=== PATIENT | male | born 1955 | race Caucasian/White ===

== ENCOUNTER 2019-08-19 07:52 | Emergency (ER) | payer BC ==
--- NOTE | 2019-08-19 08:34 | EDM.PDOC ---
ED HPI GENERAL MEDICAL PROBLEM - General Chief Complaint: Respiratory Problem Stated Complaint: DIFFICULTY BREATHING AND SORE THROAT Time Seen by Provider: 08/19/19 08:02 Source of Information: Reports: Patient History Limitations: Reports: No Limitations - History of Present Illness INITIAL COMMENTS - FREE TEXT/NARRATIVE: Patient is a 64-year-old male who presents with complaints of body aches, productive cough, sinus congestion, and postnasal drip that started approximately 3 days ago. He was seen in the [place] [facility] yesterday and diagnosed with acute bronchitis. He was started on azithromycin as well as a Virtussin cough syrup. He took his first dose of the azithromycin yesterday. He states he took some Aleve for the body aches last night but this did not help. He is not aware of any fevers at home. Current temp in the ER is 99.3 temporal. He denies any shortness of breath. He states he feels like there has been "something in his lungs "for the last couple months and that he is starting to cough it up now. No chest x-rays or influenza screens were done in the clinic yesterday. He denies any nausea, vomiting, or diarrhea. Throat Pain Score (Numeric/FACES): 7 - Related Data Allergies Allergy/AdvReac Type Severity Reaction Status Date / Time No Known Allergies Allergy Verified 08/19/19 08:01 Home Meds: Home Meds Azithromycin 250 mg PO DAILY 08/19/19 [History] Codeine Phosphate/Guaifenesin [Virtussin AC 10-100 mg/5 ml Lq] 5 - 10 ml PO BEDTIME PRN 08/19/19 [History] Cranberry 500 mg PO DAILY 08/19/19 [History] Lisinopril [Zestril] 5 mg PO DAILY 08/19/19 [History] Meloxicam 15 mg PO DAILY 08/19/19 [History] Rosuvastatin Calcium [Crestor] 20 mg PO DAILY 08/19/19 [History] Tamsulosin [Flomax] 0.4 mg PO DAILY 08/19/19 [History] Ubidecarenone [Co Q-10] 100 mg PO DAILY 08/19/19 [History] Past Medical History HEENT History: Reports: Impaired Vision Other HEENT History: wears eyeglasses. Cardiovascular History: Reports: High Cholesterol, Hypertension Respiratory History: Reports: Asthma, Pneumonia, Recurrent, Other (See Below) Other Respiratory History: hayfever. Genitourinary History: Reports: Renal Calculus Musculoskeletal History: Reports: Fracture - Infectious Disease History Infectious Disease History: Reports: Chicken Pox - Past Surgical History GI Surgical History: Reports: Hernia Repair/Other Social & Family History - Tobacco Use Smoking Status *Q: Never Smoker Second Hand Smoke Exposure: No - Caffeine Use Caffeine Use: Reports: Coffee - Recreational Drug Use Recreational Drug Use: No ED ROS GENERAL - Review of Systems Review Of Systems: See Below Constitutional: Reports: Other (generalized body aches). Denies: Fever, Chills HEENT: Reports: Ear Pain, Rhinitis, Sinus Problem, Throat Pain Respiratory: Reports: Shortness of Breath, Cough, Sputum Cardiovascular: Reports: No Symptoms. Denies: Chest Pain, Orthopnea Endocrine: Reports: No Symptoms GI/Abdominal: Reports: No Symptoms. Denies: Abdominal Pain, Diarrhea, Vomiting : Reports: No Symptoms Musculoskeletal: Reports: Other (generalized body aches) Skin: Reports: No Symptoms Neurological: Reports: No Symptoms. Denies: Dizziness, Headache Psychiatric: Reports: No Symptoms Hematologic/Lymphatic: Reports: No Symptoms Immunologic: Reports: No Symptoms ED EXAM, GENERAL - Physical Exam Exam: See Below Exam Limited By: No Limitations General Appearance: Alert, WD/WN, No Apparent Distress Eye Exam: Bilateral Eye: PERRL Ears: Normal External Exam, Normal Canal, Hearing Grossly Normal, Normal TMs Nose: Normal Inspection, Clear Rhinorrhea Throat/Mouth: Normal Inspection, Normal Oropharynx, Normal Voice, No Airway Compromise. No: Inflammation Head: Atraumatic, Normocephalic Neck: Normal Inspection, Supple, Non-Tender Respiratory/Chest: No Respiratory Distress, No Accessory Muscle Use, Chest Non- Tender, Rhonchi (right upper lobe.), Wheezing (faint expiratory to right upper lobe) Cardiovascular: Normal Peripheral Pulses, Regular Rate, Rhythm, No Edema, No Murmur GI/Abdominal: Normal Bowel Sounds, Soft, Non-Tender, No Distention Neurological: Alert, Oriented, Normal Cognition Psychiatric: Normal Affect, Normal Mood Skin Exam: Warm, Dry, Intact, Normal Color, No Rash Lymphatic: No Adenopathy Course - Vital Signs Last Recorded V/S: Last Vital Signs Temp 99.8 F 08/19/19 10:05 Pulse 95 08/19/19 10:05 Resp 18 12/28/19 10:05 BP 159/105 H 08/19/19 10:05 Pulse Ox 96 08/19/19 10:05 - Orders/Labs/Meds Orders: Active Orders 24 hr Category Date Time Status RT Post Treatment Assessment [RC] Click to Edit Care 08/19/19 09:28 Active RT Pre-Treatment Assessment [RC] Click to Edit Care 08/19/19 09:28 Active Chest 2V [CR] Stat Exams 08/19/19 08:13 Taken Meds: Medications Discontinued Medications Generic Name Dose Route Start Last Admin Trade Name Freq PRN Reason Stop Dose Admin Albuterol 0 gm 08/19/19 09:27 08/19/19 09:59 Proventil Hfa INH 08/19/19 09:28 2 puff ONETIME ONE Administration - Re-Assessments/Exams Free Text/Narrative Re-Assessment/Exam: Based on patient's symptoms and exam, I feel that he likely has a viral respiratory illness, possibly influenza. I will check an influenza screen as well as a two-view chest x-ray. 08/19/19 09:30 Patient's chest x-ray was normal with no signs of a pneumonia. He was positive for influenza B. I will send him home with an albuterol inhaler for shortness of breath and discussed symptomatic treatment. Discharge instructions as noted. Departure - Departure Time of Disposition: 09:31 Disposition: Home, Self-Care 01 Condition: Fair Clinical Impression: Influenza - Discharge Information *PRESCRIPTION DRUG MONITORING PROGRAM REVIEWED*: No *COPY OF PRESCRIPTION DRUG MONITORING REPORT IN PATIENT LISA: No Instructions: Influenza, Adult, [id number] Referrals: Elizabeth Crane PA-C [Primary Care Provider] - Forms: ED Department Discharge Additional Instructions: You were seen in the emergency Department today with cough, body aches, and congestion for the last 4 days. Your chest x-ray was normal and negative for any signs of pneumonia. You were positive for influenza B. As we discussed this is a viral illness, and there is no cure for it. Treatment is symptomatic. You have been provided with an albuterol inhaler. He may use this 2 puffs every 4 hours as needed for shortness of breath. Would also recommend that you use [id number] Mucinex and Flonase nasal spray to help with your postnasal drip and mucus production. You may continue taking the azithromycin and cough syrup that was prescribed in the [facility] yesterday. We recommend that you rest and ensure adequate fluid intake over the next couple days. As we discussed these viral illnesses generally take 7-10 days to resolve. If you should experience any new or worsening symptoms, please not hesitate to return to the emergency department. Sepsis Event Note - Evaluation Sepsis Screening Result: No Definite Risk - Focused Exam Vital Signs: Vital Signs Temp Pulse Resp BP Pulse Ox 08/19/19 10:05 99.8 F 95 18 159/105 H 96 08/19/19 08:00 99.3 F 90 18 165/89 H 97 Date Exam was Performed: 08/19/19 Time Exam was Performed: 14:13 - My Orders Last 24 Hours: My Active Orders 08/19/19 08:13 Chest 2V [CR] Stat 08/19/19 09:28 RT Post Treatment Assessment [RC] Click to Edit RT Pre-Treatment Assessment [RC] Click to Edit - Assessment/Plan Last 24 Hours: My Active Orders 08/19/19 08:13 Chest 2V [CR] Stat 08/19/19 09:28 RT Post Treatment Assessment [RC] Click to Edit RT Pre-Treatment Assessment [RC] Click to Edit
[2019-08-19] MEDS ORDERED: Albuterol 6.7 GM Inhaler INH ONE (09:27)
--- NOTE | 2019-08-21 07:12 | CR ---
Chest: Two views of the chest were obtained. Comparison: No previous chest x-ray. Heart size and mediastinum are normal. Lungs are clear. Bony structures show compression deformities within the spine which appear chronic. Mild degenerative disc space narrowing is also seen within the spine. Impression: 1. Nothing acute is seen on two-view chest x-ray. Diagnostic code #2 This report was dictated in [place] Standard Time
== END 2019-08-19 10:05 | disposition home or self-care (01) ==
LOC: JD.ED 07:52
DX: J11.1 Influenza due to unidentified influenza virus with other respiratory manifestations (principal); I10 Essential (primary) hypertension; J45.909 Unspecified asthma, uncomplicated
CPT/HCPCS: 71046; 87804; 94640; 99284; A9270

== ENCOUNTER 2024-09-28 10:26 | Emergency (ER) | payer BC ==
[2024-09-28 11:17] LABS: BASOPHILS ABSOLUTE AUTO 0.1 K/mm3 (0.0-0.2); BASOPHILS PERCENT AUTO 0.5 % (0.0-1.0); EOSINOPHILS ABSOLUTE AUTO 0.2 K/mm3 (0.0-0.4); EOSINOPHILS PERCENT AUTO 2.4 % (0.0-6.0); HEMATOCRIT 46.2 % (42.0-52.0); HEMOGLOBIN 15.3 gm/dl (14.0-18.0); IMMATURE GRAN ABSOLUTE AUTO 0.02 K/mm3 (0.00-0.05); IMMATURE GRAN PERCENT AUTO 0.2 % (0.0-0.4); LYMPHOCYTES ABSOLUTE AUTO 1.6 K/mm3 (1.0-4.8); LYMPHOCYTES PERCENT AUTO 17.4 % (24.0-44.0); MEAN CORPUSCULAR HEMOGLOBIN 31.6 pg (28.0-32.0); MEAN CORPUSCULAR HGB CONC 33.1 g/dl (32.0-36.0); MEAN CORPUSCULAR VOLUME 95.5 fl (83.0-99.0); MEAN PLATELET VOLUME 9.6 fl (9.4-12.4); MONOCYTES ABSOLUTE AUTO 0.6 K/mm3 (0.0-0.8); MONOCYTES PERCENT AUTO 6.2 % (0.0-8.0); NEUTROPHILS ABSOLUTE AUTO 6.8 K/mm3 (1.8-7.7); NEUTROPHILS PERCENT AUTO 73.3 % (41.0-71.0); PLATELET COUNT,PLT 247 K/mm3 (150-400); RED BLOOD CELL COUNT 4.84 M/mm3 (4.52-5.90); WHITE BLOOD CELL COUNT,WBC 9.33 K/mm3 (3.9-11.3)
[2024-09-28 11:39] LABS: A/G RATIO 1.1 (1-2); ALBUMIN 3.9 g/dl (3.4-5.0); BILIRUBIN TOTAL 0.9 mg/dL (0.2-1.0); BUN/CREATININE RATIO 17.8 (14-18); C-REACTIVE PROTEIN 1.47 mg/dL (<0.30); CALCIUM 9.2 mg/dL (8.5-10.1); CREATININE 0.9 mg/dL (0.7-1.3); EST CRCL DRUG DOSING (CG) 81.11 mL/min; PROTEIN TOTAL,TP 7.5 g/dl (6.4-8.2)
[2024-09-28] MEDS: Iopamidol 612 MG/ML 100 ML Bottle IVPUSH ONE (11:57)
[2024-09-28] MEDS: Sodium Chloride 0.9% 10 ML Syringe FLUSH PRN (11:57)
[2024-09-28 12:15] LABS: APPEARANCE,URINE CLEAR (Clear); BILIRUBIN,URINE NEGATIVE (Negative); COLOR,URINE YELLOW (Yellow); GLUCOSE,URINE NEGATIVE (Negative); KETONES,URINE 2+ (Negative); LEUKOCYTE ESTERASE,URINE NEGATIVE (Negative); NITRITE,URINE NEGATIVE (Negative); OCCULT BLOOD,URINE TRACE-LYSED (Negative); PH,URINE 6.5 (5.0-8.0); PROTEIN,URINE NEGATIVE (Negative); UROBILINOGEN,URINE 0.2 (0.2-1.0)
[2024-09-28 12:23] LABS: BACTERIA,URINE NOT SEEN /hpf (FEW); EPITHELIAL CELLS,URINE 0-5 /hpf (0-5); MUCUS,URINE NOT SEEN /hpf (FEW); RBC,URINE 0-5 /hpf (0-5); WBC,URINE 0-5 /hpf (0-5)
[2024-09-28] MEDS: Ketorolac 30 MG/ML SDV IVPUSH ONE (12:38)
[2024-09-28] MEDS: Amoxicillin/Clavulanate K 875-125 MG Tab PO ONE (12:39)
== END 2024-09-28 12:49 | disposition home or self-care (01) ==
LOC: JD.ED 10:26
DX: K57.32 Diverticulitis of large intestine without perforation or abscess without bleeding (principal); I10 Essential (primary) hypertension; E78.00 Pure hypercholesterolemia, unspecified; J45.909 Unspecified asthma, uncomplicated; Z79.899 Other long term (current) drug therapy
CPT/HCPCS: 36415; 74177; 80053; 81001; 85025; 86140; 96374; 99284; A9270; J1885; Q9967